=== PATIENT | male | born 1950 | race Caucasian/White ===

== ENCOUNTER 2018-07-19 08:29 | Day surgery (SDC) | payer MEDICARE, OTHER ==
[~2018-07-19] VITALS: Ht 173 cm; Wt 106.3 kg
[~2018-07-19 08:29] MED LIST: ASPI81EC PO; FISH1000 PO; FLAX PO; GLUCOSAMINE1000 MG PO; HYDACE5; METCAR500; MULVITMIND PO; Nitrostat0.4 MG SL; Vitamin C100 M1 PO
--- NOTE | 2018-07-19 09:40 | NUR ---
History, Chart, Medications and Allergies reviewed before start of procedure.Patient confirms NPO status and agrees with scheduled surgery. Patient reports completing Chlorhexadine shower X2 prior to admission to hospital.Surgical site prepped with 2% Chlorhexidine cloth wipe.
--- NOTE | 2018-07-19 13:04 | NUR ---
PT REPORTS MILD SORNESS, MEDICATED FOR PAIN PATEINT WITHOUT ANY MEDS AT HOME, WILL NEED TO FILL SCRIPT. PATIENT AND DENY ANY QUESTIONS OR CONCERNS R/T DISCHARGE. Discharge instructions reviewed with patient. Patient verbalizes understanding. Copy given to patient to take home. Discharged via wheelchair to private car for ride home.
== END 2018-07-19 23:06 | disposition home or self-care (01) ==
LOC: ORSCMMR 08:29 → ORD 10:00 → ORSCMMR 10:00
PROVIDERS: Surgery
PROC: 8E0W4CZ Robotic Assisted Procedure of Trunk Region, Percutaneous Endoscopic Approach (ICD-10-PCS; principal; 2018-07-19 10:00)
PROC: 0YU54JZ Supplement Right Inguinal Region with Synthetic Substitute, Percutaneous Endoscopic Approach (ICD-10-PCS; principal; 2018-07-19 10:00)
DX: K40.90 Unilateral inguinal hernia, without obstruction or gangrene, not specified as recurrent (principal); I25.10 Atherosclerotic heart disease of native coronary artery without angina pectoris; I25.2 Old myocardial infarction; Z79.82 Long term (current) use of aspirin; E66.01 Morbid (severe) obesity due to excess calories; Z68.35 Body mass index [BMI] 35.0-35.9, adult
CPT/HCPCS: 49650; S2900; A9270-GY; C1781; J0690; J1100; J1885; J2250; J2405; J2704; J2710; J3010; J7120

== ENCOUNTER 2023-02-07 09:13 | Emergency (ER) | payer MEDICARE, OTHER ==
[~2023-02-07] VITALS: Ht 170.2 cm; Wt 102.1 kg
[2023-02-07 10:00] VITALS: BP 149/78
[2023-02-07 10:21] LABS: BASOPHILS ABSOLUTE AUTO 0.12 K/mm3 (0.00-0.23); BASOPHILS PERCENT AUTO 1 % (0-2); EOSINOPHILS ABSOLUTE AUTO 0.23 K/mm3 (0.00-0.68); EOSINOPHILS PERCENT AUTO 2 % (0-6); Hematocrit 47.1 % (37.0-53.0); Hemoglobin 15.9 g/dL (13.5-17.5); IMMATURE GRAN ABSOLUTE AUTO 0.13 K/mm3 (0.00-0.10); IMMATURE GRAN PERCENT AUTO 1 % (0-1); LYMPHOCYTES ABSOLUTE AUTO 1.67 K/mm3 (0.84-5.20); LYMPHOCYTES PERCENT AUTO 15 % (21-46); MONOCYTES ABSOLUTE AUTO 1.77 K/mm3 (0.16-1.47); MONOCYTES PERCENT AUTO 16 % (4-13); Mean Corpuscular HGB 29.4 pg (26.0-34.0); Mean Corpuscular HGB Conc 33.8 g/dL (31.5-36.5); Mean Corpuscular Volume 87 fL (80-100); Mean Platelet Volume 8.8 fL (9.1-12.4); NEUTROPHILS ABSOLUTE AUTO 7.45 K/mm3 (1.96-9.15); NEUTROPHILS PERCENT AUTO 66 % (41-73); Platelet Count 397 K/mm3 (150-400); RDW Coefficient Variation 13.1 % (11.7-14.2); Red Blood Cell Count 5.41 M/mm3 (4.30-5.90); White Blood Cell Count 11.37 K/mm3 (4.00-11.30)
[2023-02-07 10:34] LABS: Source, Urine Clean Catch
[2023-02-07 10:49] LABS: Albumin, Blood 3.9 g/dL (3.4-5.0); Bilirubin, Total 0.5 mg/dL (0.1-1.0); Bun/Creatinine Ratio 16.8 (12.0-20.0); Calcium, Blood 9.3 mg/dL (8.5-10.1); Creatinine, Blood 0.84 mg/dL (0.60-1.20); Globulin, Blood 3.9 g/dL (2.2-4.0); Potassium, Blood 4.1 mmol/L (3.5-5.5); Total Protein, Blood 7.8 g/dL (6.4-8.2)
[2023-02-07 11:06] LABS: Appearance, Urine Hazy (Clear); Bilirubin, Urine Neg (Neg); Blood, Urine 5+ (Neg); Color, Urine Red (P-Yellow); Glucose Qualitative, Urine Neg (Neg); Ketones, Urine Neg (Neg); Leukocyte Esterase, Urine 1+ (Neg); Nitrite, Urine Neg (Neg); Protein, Urine 4+ (Neg); Urobilinogen, Urine NORM (Normal); pH, Urine 6.5 (5.0-8.0)
[2023-02-07 12:16] LABS: Bacteria Few /hpf; Mucus Light (0-Heavy); Red Blood Cells, Urine TNTC /hpf (0-2); Squamous Epithelial Cells Rare /hpf (Few)
[2023-02-07] MEDS ORDERED: CEPH500 PO ×2 (12:41→12:53)
== END 2023-02-07 12:58 | disposition home or self-care (01) ==
LOC: ER 09:13
PROVIDERS: Physician Assistant
DX: N39.0 Urinary tract infection, site not specified (principal); I25.10 Atherosclerotic heart disease of native coronary artery without angina pectoris; I25.2 Old myocardial infarction; Z79.899 Other long term (current) drug therapy; Z79.82 Long term (current) use of aspirin
CPT/HCPCS: 80053; 81001; 83690; 85025; 87086; 99283